=== PATIENT | female | born 1970 | race Caucasian/White ===

== ENCOUNTER 2016-02-24 18:04 | Emergency (ER) | payer OTHER ==
[~2016-02-24] VITALS: Ht 170.2 cm; Wt 90.7 kg
[~2016-02-24 18:04] MED LIST: VOLTAREN75 MG PO
[2016-02-24 18:30] VITALS: BP 125/79
[2016-02-24] MEDS ORDERED: HYDROCODON-ACE1 EAC1 PO (18:57)
[2016-02-24] MEDS ORDERED: MULTI-DAY VITA1 EACH PO (18:58)
[2016-02-24] MEDS ORDERED: TIZANIDINE HCL4 M1 PO (18:58)
[2016-02-24] MEDS ORDERED: IBUPROFEN200 M3 PO (18:59)
--- NOTE | 2016-02-24 19:00 | ED INFLUENZA/URI COMPLAINT ---
History of Present Illness General Chief Complaint: Upper Respiratory Sx/Fever Stated Complaint: COUGH, CONGESTION, Source: patient Exam Limitations: no limitations Vital Signs & Intake/Output Vital Signs & Intake/Output Vital Signs Date Time Temp Pulse Resp B/P Pulse O2 O2 Flow FiO2 Ox Delivery Rate 02/23 1846 Room Air 02/23 1830 98.1 94 20 125/79 97 Room Air Allergies Coded Allergies: Iodinated Contrast Media - Oral and (Intermediate, RASH ALL OVER NECK AND CHEST 02/24/16) Reconcile Medications Amoxicillin/Potassium Clav (Augmentin 875-125 Tablet) 875 MG-125 MG TABLET 1 TAB PO BID BRONCHITIS Benzonatate (Tessalon Perle) 100 MG CAPSULE 1 CAP PO TID PRN COUGH Hydrocodone/Acetaminophen (Hydrocodon-Acetaminophn 10-325) 10 MG-325 MG TABLET 1 TAB PO 4XDP PRN PAIN (Reported) Ibuprofen 200 MG CAPSULE 600 MG PO Q6H FEVER (Reported) Multivitamin (Multi-Day Vitamins) 1 EACH TABLET 1 TAB PO DAILY SUPPLEMENT ( Reported) Tizanidine HCl 4 MG TABLET 1 TAB PO QPM MUSCLE SPASMS (Reported) Triage Note: TRIAGE: PT TO ER C/C CONGESTED COUGH WITH THICK YELLOW PHLEGM REPORTED. STATES WAS DIAGNOSED WITH PNEUMONIA ABOUT A MONTH AGO AND THIS FEELS SIMILIAR. Triage Nurses Notes Reviewed? yes Onset: Gradual Duration: day(s): Timing: recent history Severity: mild, moderate Modifying Factors: Improves With: rest. Associated Symptoms: cough : No Patient currently breastfeeds: No HPI: 46 yo woman presents with cough x several days. She shares that, "I feel just like when I had pneumonia... I felt all warm and feverish at home... cough with phlegm." She is otherwise well, without wheezing, vomiting, diarrhea. Past History Travel History Traveled to [place] past 21 day No Medical History Any Pertinent Medical History? 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 No Review of Systems Review of Systems Constitutional: Reports: no symptoms. EENTM: Reports: no symptoms. Respiratory: Reports: no symptoms. Cardiovascular: Reports: no symptoms. GI: Reports: no symptoms. Genitourinary: Reports: no symptoms. Musculoskeletal: Reports: no symptoms. Skin: Reports: no symptoms. Neurological/Psychological: Reports: no symptoms. Hematologic/Endocrine: Reports: no symptoms. Immunologic/Allergic: Reports: no symptoms. All Other Systems: Reviewed and Negative Physical Exam Physical Exam General Appearance: well developed/nourished, no apparent distress Head: atraumatic, normal appearance Eyes: Bilateral: normal appearance. Ears, Nose, Throat: normal ENT inspection, moist mucous membrane Neck: normal inspection, supple, full range of motion Respiratory: normal breath sounds, chest non-tender, no respiratory distress, quiet respiration, lungs clear Cardiovascular: regular rate/rhythm Gastrointestinal: normal bowel sounds, soft, non-tender Back: normal inspection, normal range of motion Extremities: normal inspection Neurologic/Psych: no motor/sensory deficits, awake, alert, oriented x 3 Skin: intact, normal color, warm/dry Core Measures Severe Sepsis Present: No Septic Shock Present: No Progress Differential Diagnosis: bronchitis vs pneumonia vs other. Plan of Care: likely bronchitis... gave rx for augmentin/tessalon... pt safe for discharge. Diagnostic Imaging: Viewed by Me: Radiology Read. Discussed w/RAD: Radiology Read. CXR Impression: no acute abnormality, no infiltrates, normal size heart, normal mediastinum Initial ED EKG: none Comments: PATIENT: ALOK [place] PRESENT AGE: 46 PATIENT ACCOUNT NO: [id number] : 71 LOCATION: [facility] ORDERING PHYSICIAN: NADIA IVY MD SERVICE DATE: 02/24/16 EXAM TYPE: RAD - XRY-CHEST XRAY, PA AND LATERAL EXAMINATION: XR CHEST CLINICAL INFORMATION: Cough and fever. COMPARISON: CT chest 08/02/2014 TECHNIQUE: PA and lateral views of the chest were obtained. FINDINGS: No significant abnormality is noted involving the heart, lungs, mediastinum, bony thorax, or soft tissues. IMPRESSION: Unremarkable examination. DICTATED BY: ISAI YUSUF MD DATE/TIME DICTATED:02/24/162012 JOB ORDER CLERK:SHON DATE/TIME TRANSCRIBED:02/24/162012 CONFIDENTIAL, DO NOT COPY WITHOUT APPROPRIATE AUTHORIZATION. <Electronically signed in Other Vendor System> SIGNED BY: ISAI YUSUF MD 02/24/162017 Departure Departure Disposition: HOME OR SELF CARE Condition: Stable Clinical Impression Primary Impression: Bronchitis Referrals: LUIGI BETANCUR,MARIANA Carvalho (PCP/Family) Departure Forms: Customer Survey General Discharge Information Prescriptions: Current Visit Scripts Amoxicillin/Potassium Clav (Augmentin 875-125 Tablet) 1 TAB PO BID #20 TAB Benzonatate (Tessalon Perle) 1 CAP PO TID PRN COUGH #30 CAP
--- NOTE | 2016-02-24 20:18 | RADIOLOGY REPORT ---
EXAMINATION: XR CHEST CLINICAL INFORMATION: Cough and fever. COMPARISON: CT chest 08/02/2014 TECHNIQUE: PA and lateral views of the chest were obtained. FINDINGS: No significant abnormality is noted involving the heart, lungs, mediastinum, bony thorax, or soft tissues. IMPRESSION: Unremarkable examination.
[2016-02-24] MEDS ORDERED: TESSALON PERLE100 M1 PO (20:24)
[2016-02-24] MEDS ORDERED: AUGMENTIN 875-1 EACH PO (20:24)
== END 2016-02-24 20:30 ==
LOC: ERH 18:04
DX: J40 Bronchitis, not specified as acute or chronic (principal); Z87.891 Personal history of nicotine dependence
CPT/HCPCS: J3490

== ENCOUNTER 2016-05-18 21:39 | Emergency (ER) | payer OTHER ==
[~2016-05-18 21:39] MED LIST changes: +AUGMENTIN 875-1 EACH PO; +HYDROCODON-ACE1 EAC1 PO; +IBUPROFEN200 M3 PO; +MULTI-DAY VITA1 EACH PO; +TESSALON PERLE100 M1 PO; +TIZANIDINE HCL4 M1 PO
[2016-05-18 21:44] VITALS: BP 120/85
[2016-05-18] MEDS ORDERED: AMOXICILLIN500 M3 PO (22:24)
--- NOTE | 2016-05-18 22:26 | ED THROAT/DENTAL COMPLAINT ---
History of Present Illness General Chief Complaint: General Adult Stated Complaint: PT HAS A POSSIBLE STREP THROAT Source: patient Exam Limitations: no limitations Vital Signs & Intake/Output Vital Signs & Intake/Output Vital Signs Date Time Temp Pulse Resp B/P Pulse O2 O2 Flow FiO2 Ox Delivery Rate 05/18 2144 98.1 72 22 120/85 98 Allergies Coded Allergies: Iodinated Contrast Media - Oral and (Intermediate, RASH ALL OVER NECK AND CHEST 02/24/16) Triage Note: PER PT ?STREPT SORE THROAT SINCE THIS AFTERNOON, PT HAS HAD STREPT X 3 IN PAST FEW MONTHS PT DRINKING COFFEE UNABLE TO DO THROAT CULTURE AT THIS TIME Triage Nurses Notes Reviewed? yes : No Patient currently breastfeeds: No HPI: This patient is a 46-year-old female who presented to the emergency department today for evaluation of strep throat. She reported that she has had strep throat 3 times the last several months. She reported that her daughter also has strep throat with scarlet fever. The patient reported that her current throat pain started today get up to a 7 out of 10. It is sharp and nonradiating. She denied any fevers, chills, difficult to breathing, chest pain, abdominal pain, nausea, or vomiting. (GERRI MCARTHUR,CARLY) Reconcile Medications Amoxicillin 500 MG TABLET 1 TAB PO TID pharyngitis Amoxicillin/Potassium Clav (Augmentin 875-125 Tablet) 875 MG-125 MG TABLET 1 TAB PO BID BRONCHITIS Benzonatate (Tessalon Perle) 100 MG CAPSULE 1 CAP PO TID PRN COUGH Hydrocodone/Acetaminophen (Hydrocodon-Acetaminophn 10-325) 10 MG-325 MG TABLET 1 TAB PO 4XDP PRN PAIN (Reported) Ibuprofen 200 MG CAPSULE 600 MG PO Q6H FEVER (Reported) Multivitamin (Multi-Day Vitamins) 1 EACH TABLET 1 TAB PO DAILY SUPPLEMENT ( Reported) Tizanidine HCl 4 MG TABLET 1 TAB PO QPM MUSCLE SPASMS (Reported) (BIJU BETANCUR,NADIA Castellanos) Past History Travel History Traveled to [place] past 21 day No Medical History Any Pertinent Medical History? 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 No (CARLY TALLEY PA-C) Review of Systems Review of Systems Constitutional: Reports: no symptoms. EENTM: Reports: see HPI. Respiratory: Reports: no symptoms. Cardiovascular: Reports: no symptoms. GI: Reports: no symptoms. Musculoskeletal: Reports: no symptoms. Skin: Reports: no symptoms. Neurological/Psychological: Reports: no symptoms. All Other Systems: Reviewed and Negative (CARLY TALLEY PA-C) Physical Exam Physical Exam Mouth/Throat: pharyngeal injection with left-sided tonsillar exudates with no oropharyngeal lesions or edema. No uvular edema. No trismus or drooling. No mandibular or maxillary edema. Comments: Well-developed well-nourished person in no acute distress HEENT: Head normocephalic, moist mucous membranes Neck: Supple, no lymphadenopathy Back: Normal gait Respiratory: No respiratory distress. Speaking in full sentences Extremities: No edema, full range of motion Neuro: Alert and oriented x3 Psych: Mood affect normal, normal memory normal judgment. Skin: Warm and dry, no rash on exposed skin Core Measures ACS in differential dx? No Severe Sepsis Present: No Septic Shock Present: No (CARLY TALLEY PA-C) Progress Differential Diagnosis: aspirated tooth, carious tooth, epiglottitis, Ludwigs angina, meningitis, odontogenic abscess, carol-tonsillar abscess, pharyngeal for. body, stomatitis/gingivitis, strep pharyngitis, tooth fracture Plan of Care: Orders Procedure Date/time Status THROAT CULTURE W/QUICK STREP 05/19 2155 Active Departure Departure Disposition: HOME OR SELF CARE Condition: Stable Clinical Impression Primary Impression: Pharyngitis Qualifiers: Pharyngitis/tonsillitis etiology: unspecified etiology Qualified Code: J02.9 - Acute pharyngitis, unspecified Referrals: LUIGI BETANCUR,MARIANA Carvalho (PCP/Family) Additional Instructions: Take antibiotic as prescribed and for the full duration. Follow-up with your primary care physician. Return for any worsening symptoms or concerns. Departure Forms: Customer Survey General Discharge Information Prescriptions: Current Visit Scripts Amoxicillin 1 TAB PO TID #30 TAB (CARLY TALLEY PA-C) PA/FRENCH FOLDER Co-Sign Statement Statement: ED Attending supervision documentation- [] I saw and evaluated the patient. I have also reviewed all the pertinent lab results and diagnostic results. I agree with the findings and the plan of care as documented in the PA's/FRENCH FOLDER's documentation. x[] I have reviewed the ED Record and agree with the PA's/FRENCH FOLDER's documentation. [] Additions or exceptions (if any) to the PAs/FRENCH FOLDER's note and plan are summarized below: [] (BIJU BETANCUR,NADIA Castellanos)
== END 2016-05-18 22:33 ==
LOC: ERH 21:39
DX: J02.9 Acute pharyngitis, unspecified (principal)